=== PATIENT | male | born 1955 | race Caucasian/White ===

== ENCOUNTER 2022-09-02 09:25 | Outpatient (CLI) | payer MEDICARE, OTHER ==
[2022-09-02 18:24] VITALS: BP 132/80
--- NOTE | 2022-09-02 18:24 | SLEEP CARE CONSULTATION ---
Information from patient questionnaire entered by Tamiko Irwin. I have reviewed and concur with the information entered by Tamiko Irwin. This document represents the service I personally performed and the decisions made by me, Tawnya Leon ARNP. History of Present Illness Service Date and Time: 09/02/2022924 Reason for Visit: New patient Chief Complaint: reports: Frequent awakenings at night Date of Onset: 2.5-3YRS Usual bedtime: 9PM Time it takes to fall asleep: 30MIN Snores at night: Yes Observed to quit breathing while asleep: No Sleeps alone due to snoring: No Number of times waking at night: 2 Reasons for waking at night: reports: Other (DREAMS) Toss, Turn, or Twitch while sleeping: Yes Recalls having dreams: Yes Usually gets out of bed at: 615AM Feels refreshed in the morning: Yes Morning headache: Yes (NOT OFTEN BUT RESOLVES AFTER TAKING TYLENOL) Sleepy or fatigued during the day: Yes Ever fallen asleep while driving: No Takes day naps: Yes Dreams during day naps: Yes Prior sleep studies: No Additional HPI information: I had the pleasure of seeing ALEXIS KUNZ today regarding the possibility of him having a sleep disorder. His current complaints are snoring and frequent night awakenings. He states he has trouble staying asleep at night. He will be awoken by "hectic" and "vivid" dreams. He states he was started on Doxepin to help him sleep and since then he has been having these vivid dreams. He states he usually wakes up feeling refreshed. He wakes up with headaches about twice a month that goes away with Tylenol. He does have fatigue during the day but feels it may be due to his age of 67. He naps about twice a month for about an hour. - Parasomnia Symptoms Ever been unable to move upon waking from sleep: No Walks in sleep: No Talks in sleep: Yes Ever acted out dreams in sleep: Yes Ever felt weak in the knees when startled or emotional: No Bothered by creepy, crawly, restless sensations in legs: No Problems with memory or concentration: Yes (memory) Subjective Initial Howe Sleepiness Scale score: 6 (08/17/22) Past Medical History Past Medical History: reports: Hypertension, Arthritis, Gout, GERD Social History The patient's occupation is a RE. Patient is / and lives in . Have you smoked in the past 12 months: Yes Cigarettes per day (20/pack): 30 Years of smokin Quit date: 2009 Smoking Pack Years: 49.5 Alcohol use: No Caffeine use: Yes Caffeine amount and frequency: 3-4 20 oz daily Family History Family history of sleep disordered breathing: No Allergies and Home Medications Drug allergies reviewed: Yes (NKDA; did have a reaction with Diltiazem & Doxepin) Home medication list reviewed: Yes (see list in EMR) Review of Systems Weight gain over past 5 years: 50 in the last 1.5 years Cardiovascular: reports: high blood pressure, leg or foot swelling Respiratory: reports: sputum production, other (Chronic sinusitis) Gastrointestinal: reports: heartburn Urinary: reports: frequency Neurological: reports: gait or balance problems Psychiatric: reports: anxiety, depression Ear/Nose/Throat: reports: nasal congestion, sinus problems, dry mouth/throat, wisdom teeth removed Endocrine: reports: increased appetite, increased urination Musculoskeletal: reports: joint pain, joint swelling, muscle pain or cramping, other (mostly hands) Physical Exam Vital signs obtained and entered by: TAMIKO Proctor MA Blood Pressure: 132/80 (LEFT ARM) Cuff size: regular Heart Rate: 49 O2 Saturation: 98 Height: 6 ft Weight: 191 lb Body Mass Index: 25.9 BMI Classification: Overweight Neck circumference: 15.25 Mouth and throat: narrow oropharynx Soft palate: long Hard palate: normal Uvula: normal Uvula visualization: 50% Mallampati Class II Tongue: enlarged in size with teeth pepe on lateral edges Tonsils: small Neck: normal w/o lymphadenopathy or thyromegaly Heart: regular rate and rhythm Lungs: clear bilaterally Impression and Plan 1. Suspected Obstructive Sleep Apnea-Hypopnea Syndrome, as suggested by a hi story of loud and irregular snoring, frequent awakening during the night and cognitive impairment. Narrow oropharynx and obesity are common predisposing factors for obstructive sleep apnea-hypopnea syndrome. I recommend proceeding to polysomnography to confirm the diagnosis and to assess severity. If the patient has significant sleep disordered breathing, a manual CPAP titration study will also be performed to find the optimal treatment pressure. I informed the patient of what the sleep studies involve and after some discussion, obtained agreement to proceed. The pathophysiology of obstructive sleep apnea-hypopnea syndrome was discussed with the patient and health risks of cardiovascular and cerebrovascular disease if not treated. Risks of drowsy driving discussed in detail and patient advised to avoid long distance driving and to press puller at the first sign of drowsiness. Patient agreed to plan. * Schedule polysomnography * Avoid long distance driving or driving when feeling sleepy. * Avoid alcohol, sedative and muscle relaxant around bedtime. * Attempt to lose weight. * Review instructions provided by trained office staff on how to prepare for the sleep study. * Return for follow-up after sleep study completed. Counseling Topics: Weight loss health impact Visit Type: In Office Time Spent with Patient (minutes): 32 Provider Statement: I spent 100% of the Face to Face Visit with the patient with greater than 50% spent counseling the patient and coordination of care.
== END 2022-09-02 09:26 | disposition home or self-care (01) ==
LOC: SC 09:25
PROVIDERS: ATTEND Nurse Practitioner Family
DX: G47.8 Other sleep disorders (principal); R06.83 Snoring; I10 Essential (primary) hypertension; Z87.891 Personal history of nicotine dependence; E66.3 Overweight; Z68.25 Body mass index [BMI] 25.0-25.9, adult
CPT/HCPCS: 99203; G0463; 99212

== ENCOUNTER 2022-09-19 20:10 | Outpatient (CLI) | payer MEDICARE, OTHER | END 2022-09-19 20:11 | disposition home or self-care (01) | LOC: SC 20:10 | PROVIDERS: ATTEND Nurse Practitioner Family | DX: G47.33 Obstructive sleep apnea (adult) (pediatric) (principal); I10 Essential (primary) hypertension | CPT/HCPCS: 95810 ==

== ENCOUNTER 2022-10-01 12:50 | Outpatient (CLI) | payer MEDICARE, OTHER ==
[2022-10-01 13:24] VITALS: BP 162/110
--- NOTE | 2022-10-01 13:24 | SLEEP CARE CONSULTATION ---
Information from patient questionnaire entered by Tamiko Irwin. I have reviewed and concur with the information entered by Tamiko Irwin. This document represents the service I personally performed and the decisions made by me, Tawnya Leon ARNP. History of Present Illness Service Date and Time: 10/01/2022 1250 Initial [place] Sleepiness Scale score: 6 (09/02/2022) Current Ekron Sleepiness Scale score: 10 (10/01/22) Additional HPI information: ALEXIS KUNZ returns for follow up and results of the recently performed polysomnography. I explained the pathophysiology behind obstructive sleep apnea. We then spent quite a bit of time discussing different treatment options. For mild obstructive sleep apnea, surgery and oral appliance are alternatives to nasal CPAP therapy but in moderate or severe cases, nasal CPAP is the most effective and reliable treatment. Because apnea is primarily in supine position, then positional management therapy could be effective. Methods discussed such as positioning with pillows to prevent supine sleep. I reviewed the impact of weight changes on sleep apnea and strongly recommended losing weight. After some discussion, the patient opted to go with the nasal CPAP therapy. Nasal autoCPAP set at 4-15 cmH20 will be ordered with rationale explained. A manual titration study will be ordered if unable to find optimal pressure with office adjustments. I explained how CPAP machine works and what to expect when using the machine. Using CPAP every night in order to get used to it was emphasized. Patient advised to put CPAP mask on before getting into bed so as not to fall asleep w ithout CPAP. To assist acclimation to CPAP use, it could also be used for a short time during day while reading or watching TV. The patient was instructed to call the CPAP supplier to discuss any mechanical problem that may occur. If the mask given is uncomfortable or is difficult to keep on through the night even with adjustment, contact the CPAP supplier as many will replace with another mask style if notified before 30 days. If snoring or perceives is not getting enough air or too much air from the machine, notify this office. Patient counseled not drink alcohol less than 4 hours before bedtime as it can increase snoring and apnea. Patient was cautioned about risks of drowsy driving until sleepiness symptoms resolve. Patient denies drowsy driving. Sleep Study - Results Type of Sleep Study: Polysomnography (COMPLETED 09/19/2022) Polysomnography/Home Sleep Study results: IMPRESSION: The quality of the study is good. The patient had normal sleep efficiency. The sleep architecture was abnormal for sleep fragmentation and reduced amount of time spent in REM and slow wave sleep (N3). Respiratory monitoring showed severe obstructive sleep apnea-hypopnea (AHI = 74.5) associated with frequent arousals, oxyhemoglobin desaturation and moderate hypoxia (amy oxygen saturation of 66%). The patient only slept supine during this study (supine AHI = 74.5; non-supine = 0.00). Snore was moderate to loud in intensity. There was no significant periodic leg movement of sleep. Cardiac rhythm was normal sinus rhythm without significant arrhythmia. No abnormal behavior (parasomnia) observed during the night. Allergies and Home Medications Drug allergies reviewed: Yes (NKDA) Home medication list reviewed: Yes (no changes) Review of Systems Review of systems same as previous: Yes (no changes) Physical Exam Vital signs obtained and entered by: TAMIKO Proctor MA Blood Pressure: 162/110 (LEFT ARM) Cuff size: regular Heart Rate: 95 O2 Saturation: 96 Height: 5 ft 11 in Weight: 191 lb 9.6 oz Body Mass Index: 26.7 BMI Classification: Overweight Impression and Plan 1. Obstructive Sleep Apnea-Hypopnea Syndrome, very severe, with lowest oxygen saturation of 66%. Obviously this is the cause of the patients symptoms of unrefreshed sleep, and excessive daytime sleepiness. Positive pressure therapy could benefit hypertension and gastric reflux. As mentioned above, the patient will be started on nasal autoCPAP therapy with pressure set at 5-20 cmH2O. Compliance guidelines also reviewed. A copy of compliance guidelines will be given for reference at check out. 2. Hypoxemia, moderate, with a amy oxygen saturation of 66% and 50.1 minutes spent under 90%. His baseline oxygen saturation was normal with an average oxygen saturation of 92%. * Nasal auto CPAP therapy, pressure at 5-20 cm H2O. * Attempt to lose weight. * Avoid alcohol consumption near bedtime. * Avoid supine sleep until using CPAP. * The patient is again cautioned about driving until sleepiness completely resolves. * Return one month after CPAP obtained. I will assess response to therapy and compliance at that time. Counseling Topics: Weight loss health impact Visit Type: In Office Time Spent with Patient (minutes): 21 Provider Statement: I spent 100% of the Face to Face Visit with the patient with greater than 50% spent counseling the patient and coordination of care.
== END 2022-10-01 12:51 | disposition home or self-care (01) ==
LOC: SC 12:50
PROVIDERS: ATTEND Nurse Practitioner Family
DX: G47.33 Obstructive sleep apnea (adult) (pediatric) (principal); R09.02 Hypoxemia; E66.3 Overweight; Z68.26 Body mass index [BMI] 26.0-26.9, adult
CPT/HCPCS: 99213; G0463; 99212

== ENCOUNTER 2022-11-04 07:32 | Outpatient (CLI) | payer MEDICARE, OTHER ==
--- NOTE | 2022-11-04 17:31 | Ultrasound Report ---
PROCEDURE: Aorta Screening INDICATIONS: AAA SCREENING TECHNIQUE: Real time scanning was performed of the aorta and iliac arteries, with image documentatio n. COMPARISON: None. FINDINGS: Aorta: Proximal aortic diameter measures 2.7 x 2.7 cm. Mid-aorta measures 1.7 x 1.8 cm. Distal aor tic diameter is 1.5 x 1.5 cm. Iliac arteries: Right common iliac artery measures 1.0, 0.9 cm. Left common iliac artery measures 0 .8 x 0.9 cm. IMPRESSION: Negative screening abdominal aortic ultrasound for evidence of abdominal aortic aneurysm. Reviewed by: Mirza Diaz MD on 11/04/2022 5:29 PM PST Approved by: Mirza Diaz MD on 11/04/2022 5:29 PM PST Station ID: [id number]
== END 2022-11-04 07:33 | disposition home or self-care (01) ==
LOC: DI 07:32
PROVIDERS: ATTEND Student in an Organized Health Care Education/Training Program
DX: Z13.6 Encounter for screening for cardiovascular disorders (principal); Z87.891 Personal history of nicotine dependence

== ENCOUNTER 2023-03-27 08:10 | Day surgery (SDC) | payer MEDICARE, OTHER ==
[2023-03-27] MEDS ORDERED: LACTATED RINGERS 1,000 ML IV ONE ×2 (08:35→10:22)
--- NOTE | 2023-03-27 09:01 | ANESTHESIA ---
Pre-Anesthesia VS, & Labs - Diagnosis history of polyps - Procedure colonoscopy Vital Signs: Temp Pulse Resp BP Pulse Ox O2 Flow Rate 36.0 C L 49 L 14 146/81 H 98 0 03/27/23 08:36 03/27/23 08:36 03/27/23 08:36 03/27/23 08:36 03/27/23 08:36 03/27/23 08:36 Height: 6 ft Weight (kg): 88 kg Body Mass Index: 26.3 BMI Classification: Overweight - NPO >8 hours Home Medications and Allergies Aspirin [Vazalore] See Rx Instructions .ROUTE .COMPLEX 09/02/22 DULoxetine [Cymbalta] See Rx Instructions .ROUTE .COMPLEX 09/02/22 Doxepin [SINEquan] See Rx Instructions .ROUTE .COMPLEX 09/02/22 Loratadine [All Day Allergy Relief] See Rx Instructions .ROUTE .COMPLEX 09/02/22 Multivitamin See Rx Instructions .ROUTE .COMPLEX 09/02/22 Omeprazole Magnesium See Rx Instructions .ROUTE .COMPLEX 09/02/22 Potassium Chlor 20 Meq/100 ml [Potassium Chloride] See Rx Instructions .ROUTE .COMPLEX 09/02/22 Rosuvastatin Calcium [Crestor] See Rx Instructions .ROUTE .COMPLEX 09/02/22 Terazosin HCl [Hytrin] See Rx Instructions .ROUTE .COMPLEX 09/02/22 allopurinoL [Allopurinol] See Rx Instructions .ROUTE .COMPLEX 09/02/22 hydroCHLOROthiazide [Hydrodiuril] See Rx Instructions .ROUTE .COMPLEX 09/02/22 Allergies/Adverse Reactions: Allergies Allergy/AdvReac Type Severity Reaction Status Date / Time No Known Drug Allergies Allergy Verified 03/27/23 08:55 Anes History & Medical History - Anesthetic History Anesthesia Complications: reports: No previous complications - Medical History Cardiovascular: reports: Hypertension, High cholesterol Pulmonary: reports: Sleep apnea, CPAP use Gastrointestinal: reports: GERD, Colon polyps Urinary: reports: Benign prostate hypertrophy, Other Musculoskeletal: reports: Osteoarthritis, Gout Endocrine/Autoimmune: reports: None Skin: reports: Eczema History of Cancer?: Yes - Surgical History General: reports: Colonoscopy Orthopedic: reports: Rotator cuff repair Exam General: Alert, Oriented x3 Dental: WNL Mouth Opening: Greater than 4 Fingerbreadths Neck Mobility: Normal Mallampati classification: I Thyromental Distance: greater than 6 cm Respiratory: Lungs clear Cardiovascular: Regular rate Plan Anesthesia Type: Total IV Consent for Procedure(s) Verified and Reviewed: Yes Code Status: Attempt Resuscitation ASA classification: 3-Severe systemic disease Is this case an emergency?: No
--- NOTE | 2023-03-27 09:46 | HISTORY & PHYSICAL EXAMINATION ---
Chief Complaint - Chief Complaint Chief Complaint: here for colonoscopy History of Present Illness - History Obtained From Records Reviewed: yes History obtained from: pt Exam Limitations: none - History of Present Illness HPI Comment/Other: fecal occult blood test positive. recommended to have a colonoscopy by his primary care provider History - Past Medical History Cardiovascular: reports: Hypertension, High cholesterol Respiratory: reports: Sleep apnea, CPAP use Endocrine/Autoimmune: reports: None GI: reports: GERD, Colon polyps : reports: Benign prostate hypertrophy, Other HEENT: reports: Chronic hearing loss Psych: reports: None Musculoskeletal: reports: Osteoarthritis, Gout Derm: reports: Eczema MRSA Hx?: No - Past Surgical History General: reports: Colonoscopy Ortho: reports: Rotator cuff repair Meds/Allgy - Home Medications Home Medications: Ambulatory Orders Medication Instructions Recorded Confirmed Aspirin [Vazalore] See Rx Instructions .ROUTE .COMPLEX 09/02/22 03/26/23 DULoxetine [Cymbalta] See Rx Instructions .ROUTE .COMPLEX 09/02/22 03/26/23 Doxepin [SINEquan] See Rx Instructions .ROUTE .COMPLEX 09/02/22 03/26/23 Loratadine [All Day Allergy Relief] See Rx Instructions .ROUTE .COMPLEX 09/02/22 03/26/23 Multivitamin See Rx Instructions .ROUTE .COMPLEX 09/02/22 03/26/23 Omeprazole Magnesium See Rx Instructions .ROUTE .COMPLEX 09/02/22 03/26/23 Potassium Chlor 20 Meq/100 ml See Rx Instructions .ROUTE .COMPLEX 09/02/22 03/26/23 [Potassium Chloride] Rosuvastatin Calcium [Crestor] See Rx Instructions .ROUTE .COMPLEX 09/02/22 03/26/23 Terazosin HCl [Hytrin] See Rx Instructions .ROUTE .COMPLEX 09/02/22 03/26/23 allopurinoL [Allopurinol] See Rx Instructions .ROUTE .COMPLEX 09/02/22 03/26/23 hydroCHLOROthiazide [Hydrodiuril] See Rx Instructions .ROUTE .COMPLEX 09/02/22 03/26/23 - Allergies Allergies/Adverse Reactions: Allergies Allergy/AdvReac Type Severity Reaction Status Date / Time No Known Drug Allergies Allergy Verified 03/27/23 08:55 Review of Systems - Other Findings Other Findings: 10 pt ros as above otherwise unremarkable Exam - Vital Signs Vital Signs: Vital Signs x48h Temp Pulse Resp BP Pulse Ox O2 Flow Rate 03/27/23 08:36 36.0 C L 49 L 14 146/81 H 98 0 - Physical Exam General Appearance: positive: No acute distress, Alert Eyes Bilateral: positive: PERRL, EOMI ENT: positive: No signs of dehydration Neck: positive: No JVD, Trachea midline Respiratory: positive: No respiratory distress Cardiovascular: positive: Regular rate & rhythm Abdomen: positive: No distention Neurologic/Psychiatric: positive: Oriented x3 Conclusion/Plan - Problem List (1) Abnormal stool test Conclusion/Plan: positive fecal occult blood. colonoscopy has been recommended . parq held and consent obtained
[2023-03-27] MEDS ORDERED: PROPOFOL 200 MG/20 ML VIAL IVP ONE (10:11)
[2023-03-27] MEDS ORDERED: PROPOFOL 500 MG/50 ML 500 MG/50 ML VIAL ONE (10:11)
[2023-03-27 10:56] VITALS: BP 117/72
--- NOTE | 2023-03-27 14:03 | ANESTHESIA POST OP EVALUATION ---
Anesthesia Post Eval - Post Anesthesia Eval Vitals: Last Vital Signs Temp 36.0 C L 03/27/23 10:45 Pulse 73 03/27/23 10:45 Resp 16 03/27/23 10:45 BP 117/72 03/27/23 10:45 Pulse Ox 100 03/27/23 10:45 O2 Flow Rate 0 03/27/23 08:36 CV Function Including HR & BP: Stable Pain Control: Satisfactory Nausea & Vomiting: Negative Mental Status: Baseline Respiratory Status: Airway Patent Hydration Status: Satisfactory Anesthesia Complications: None
== END 2023-03-27 08:11 | disposition home or self-care (01) ==
LOC: SDS 08:10
PROVIDERS: ATTEND Surgery
PROC: 0DBL8ZZ Excision of Transverse Colon, Via Natural or Artificial Opening Endoscopic (ICD-10-PCS; principal; 2023-03-27 09:45)
DX: Z12.11 Encounter for screening for malignant neoplasm of colon (principal); R19.5 Other fecal abnormalities; D12.3 Benign neoplasm of transverse colon; G47.30 Sleep apnea, unspecified; I10 Essential (primary) hypertension
CPT/HCPCS: 45385; J7120

== ENCOUNTER 2023-11-19 08:00 | Outpatient (CLI) | payer MEDICARE, OTHER | END 2023-11-19 23:59 | disposition home or self-care (01) | LOC: LAB.N 08:00 | PROVIDERS: ATTEND Physician Assistant Medical | DX: L03.011 Cellulitis of right finger (principal) | CPT/HCPCS: 87070; 87181; 87205 ==